=== PATIENT | female | born 1995 | race Caucasian/White ===

== ENCOUNTER 2017-10-09 08:03 | Outpatient (CLI) | payer OTHER ==
[2017-10-09 08:51] LABS: Glucose,Whole Blood 95 mg/dL (75-99)
[2017-10-09 08:56] VITALS: BP 117/65; PULSE 80; RESP 16; TEMP 97.4
--- NOTE | 2017-10-10 07:40 | P.MSEPDOC ---
Presenting Problems - Arrival Data Date of Arrival on Unit: 10/09/17 Time of Arrival on Unit: 08:14 Mode of Transport: Wheelchair - Complaint OB-Reason for Admission/Chief Complaint: Syncope/Fainting Spell, Other Comment: pt arrived c/o upper abd discomfort and c/o seeing dots and black spots. pt has been seeing dr raygoza for this and he is aware of her having this issue and has done testing prior and she has seen a cardilogist Medical History - Information : 3 Para: 1 Term: 1 : 0 Abortions: Spontaneous or Elective: 1 Number of Living Children: 1 - Gestational Age Gestational Age by BETTYE (wks/days): 33 Weeks and 5 Days - History Complications: Prior Review of Systems - Review of Systems Constitutional: No problems Breast: No problems ENT: No problems Cardiovascular: No problems Respiratory: No problems Gastrointestinal: No problems Genitourinary: No problems Musculoskeletal: No problems Neurological: Fainting, Dizziness Skin: No problems Comment: pt states a history of blacking out and seeing stars Vital Signs - Temperature Temperature: 97.4 F Temperature Source: Oral - Pulse Right Brachial Pulse Rate: 80 Pulse Assessment Method: Automatic Cuff - Respirations Respiratory Rate: 16 Oxygen Delivery Method: Room Air O2 Sat by Pulse Oximetry: 99 - Blood Pressure Right Arm Blood Pressure: 117/65 Blood Pressure Mean: 82 Blood Pressure Source: Automatic Cuff Medical Screen Scoring (Pre) - Maternal Vital Signs Maternal Temperature: N/A Maternal Blood Pressure: N/A Signs of Preeclampsia: Visual Disturbance = 1 Maternal Respirations: N/A - Maternal Trauma Maternal Trauma: N/A - Assessment Baseline FHR: 130 Heart Rate - NICHD Category: Category I (Normal) = 0 NST: Reactive Position: N/A Station: N/A - Total Score Total Score (Pre): 1 Medical Screen Scoring (Post) - Cervical Exam Dilation: 0 cm = 0 Membranes: Intact - Uterine Contractions Frequency: N/A Duration: N/A Intensity: N/A - Maternal Vital Signs Maternal Temperature: N/A Maternal Blood Pressure: N/A Signs of Preeclampsia: N/A Maternal Respirations: N/A - Pain Assessment Pain Location and Character: Abdomen Pain Scale Used: Numeric (1 - 10) Pain Intensity: 6 Pain Management Goal: 2 Pain Description: Dull Pain Radiation Location: n/a Pain Frequency: Occasional Pain Duration: 40 Pain Duration Units: Minutes Pain Behavior: Vocalization Pain Aggravating Factors: Position Non-Pharmacological Interventions: Relaxation Technique - Maternal Trauma Maternal Trauma: N/A - Assessment Heart Rate: 130 Heart Rate - NICHD Category: Category I (Normal) = 0 NST: Reactive Position: N/A Station: N/A - Total Score Total Score (Post): 0 Physician Notification (Post) - Physician Notified Physician Notified Date: 10/09/17 Physician Notified Time: 09:40 Spoke With: dr rick Trevino Order Received: Yes - Notification Comment Comment: may discharge to home with instructions Disposition - Disposition Discharge Date: 10/09/17 Discharge Time: 10:00 I agree with the RN Medical Screening Exam: Yes Risk & Benefit of care provided described in d/c instruction: Yes Diagnosis: DIZZINESS AND GIDDINESS
== END 2017-10-09 10:00 | disposition home or self-care (01) ==
LOC: FBPOP 08:03
PROVIDERS: ATTEND Obstetrics & Gynecology
DX: O99.89 Other specified diseases and conditions complicating pregnancy, childbirth and the puerperium (principal); R42 Dizziness and giddiness; Z3A.33 33 weeks gestation of pregnancy
CPT/HCPCS: 59025; G0463; 99213

== ENCOUNTER → 2017-11-01 | Outpatient (CLI) | payer OTHER ==
--- NOTE | 2017-11-01 15:45 | US ---
EXAMINATION TYPE: US OB >= 14 wk fetus DATE OF EXAM: 11/01/2017 COMPARISON: NONE HISTORY: supervision of normal Z34 TECHNIQUE: Transabdominal (TA) EXAM MEASUREMENTS: GESTATIONAL AGE / DATING Physician Established: (37 weeks/0 days) EDC: 11/22/17 Dates by LMP: unknown Dates by First Scan: not available Dates by Current Scan for: (36 weeks/ 3 days) EDC: 11/26/17 SURVEY IUP: Single PLACENTA: Anterior PREVIA: No previa ASHANTI: 11.4 cm CERVICAL LENGTH (transabdominal: norm > 3.0cm): 3.8 cm BIOMETRY PRESENTATION: Vertex LIE: Longitudinal BPD: 9.1 cm 37 weeks / 0 days HC: 32.7 cm 37 weeks / 1 days AC: 31.5 cm 35 weeks / 3 days FL: 7.1 cm 36 weeks / 2 days ESTIMATED WEIGHT IN GRAMS: 2815 grams ESTIMATED WEIGHT IN LBS/OZ: 6 lbs. 3 oz. WEIGHT PERCENTAGE BASED ON ESTABLISHED DATE: 29 % HC/AC: 1.0 FL/AC: 22.5 HEART RATE: 156 bpm RHYTHM: Normal IMPRESSION: Single viable intrauterine corresponding to ultrasound age 36 weeks 3 days with estimated d ate of delivery 11/26/2017. Limited survey.
== END | disposition home or self-care (01) ==
LOC: RADUSWWP 14:17
PROVIDERS: ATTEND Obstetrics & Gynecology
DX: Z34.80 Encounter for supervision of other normal pregnancy, unspecified trimester (principal); Z3A.36 36 weeks gestation of pregnancy
CPT/HCPCS: 76805

== ENCOUNTER 2018-03-26 03:34 | Emergency (ER) | payer OTHER ==
[2018-03-26 03:44] VITALS: BP 118/84; PULSE 83; RESP 16; TEMP 98
--- NOTE | 2018-03-26 04:27 | ED ---
General Adult HPI - General Chief complaint: Allergic Reaction Stated complaint: ALLERGIC REACTION Source: patient Mode of arrival: ambulatory Limitations: no limitations - History of Present Illness Initial comments: Dictation was produced using [employer] dictation software. please excuse any grammatical, word or spelling errors. Chief Complaint: 22-year-old -Ugandan female seemed. Medical history presents with rash History of Present Illness:. Patient is a 22-year-old female with chief complaint of rash. Patient states she's been having this rash for the last 2 days. Patient has been exposed to couple no medications. She states she received some Toradol she's been taking Motrin. She also started new job 4 days ago. She states she has this intermittent episodic rash to her dorsal hands and face. Patient was called in a prescription for steroids however she continues at this intermittent rash. Patient has been wearing his gloves. The ROS documented in this emergency department record has been reviewed and confirmed by me. Those systems with pertinent positive or negative responses have been documented in the HPI. All other systems are other negative and/or noncontributory. - Related Data Home Medications Medication Instructions Recorded Confirmed Docusate [Colace] 100 mg PO DAILY 10/09/17 10/09/17 Pnv No.95/Ferrous Fum/Folic AC 1 each PO 10/09/17 [ Multivitamin Tablet] Previous Rx's Medication Instructions Recorded hydrOXYzine HCL [Atarax] 25 mg PO TID PRN #20 tab 03/26/18 Allergies Allergy/AdvReac Type Severity Reaction Status Date / Time No Known Allergies Allergy Verified 10/09/17 08:22 Review of Systems ROS Statement: Those systems with pertinent positive or pertinent negative responses have been documented in the HPI. ROS Other: All systems not noted in ROS Statement are negative. Past Medical History Past Medical History: No Reported History History of Any Multi-Drug Resistant Organisms: None Reported Past Surgical History: Section Past Psychological History: Anxiety Smoking Status: Former smoker General Exam - General Exam Comments Initial Comments: PHYSICAL EXAM: General Impression: Alert and oriented x3, not in acute distress HEENT: Normocephalic atraumatic, extra-ocular movements intact, pupils equal and reactive to light bilaterally, mucous membranes moist. Cardiovascular: Heart regular rate and rhythm, S1&S2 audible, no murmurs, rubs or gallops Chest: Lungs clear to auscultation bilaterally, no rhonchi, no wheeze, no rales Abdomen: Bowel sounds present, abdomen soft, non-tender, non-distended, no organomegaly Musculoskeletal: Pulses present and equal in all extremities, no peripheral edema Motor: Power 5/5 bilaterally, no focal deficits noted Neurological: CN II-XII grossly intact, no focal motor or sensory deficits noted Skin: Erythematous macular rash to the dorsum of both hands with lesions to the mastoid areas and anterior face. Spares the palms. No rash to the abdomen chest or back. Psych: Normal affect and mood Limitations: no limitations Course Vital Signs 03/26/18 03:38 Temperature 98.0 F Pulse Rate 83 Respiratory 16 Rate Blood Pressure 118/84 O2 Sat by Pulse 100 Oximetry Medical Decision Making - Medical Decision Making ED course: 22-year-old female click or presentation consistent with contact dermatitis. Vital signs upon arrival are within acceptable limits. No clinical suspicion of anaphylaxis or life-threatening ALLERGIC reaction at this time. Patient prescription for Atarax. She is told to continue taking prednisone. Patient be discharged with instructions for her care physician upon discharge. Disposition Clinical Impression: Allergic reaction Disposition: HOME SELF-CARE Condition: Good Instructions: Contact Dermatitis (ED) Prescriptions: hydrOXYzine HCL [Atarax] 25 mg PO TID PRN #20 tab PRN Reason: Itching Is patient prescribed a controlled substance at d/c from ED?: No Referrals: Janelle Lafleur MD [Primary Care Provider] - 1-2 days Time of Disposition: 04:26
== END 2018-03-26 04:37 | disposition home or self-care (01) ==
LOC: EC 03:34
DX: T78.40XA Allergy, unspecified, initial encounter (principal); Z87.891 Personal history of nicotine dependence
CPT/HCPCS: 99282

== ENCOUNTER 2018-05-26 16:33 | Emergency (ER) | payer OTHER ==
[2018-05-26 16:44] VITALS: TEMP 97.9
[2018-05-26] MEDS ORDERED: ACETAMINOPHEN TAB 500 MG TAB PO STA (16:58)
--- NOTE | 2018-05-26 17:00 | ED ---
General Adult HPI - General Chief complaint: Abdominal Pain Stated complaint: early -pain on right side Source: patient Mode of arrival: ambulatory Limitations: no limitations - History of Present Illness Initial comments: Dictation was produced using [employer] dictation software. please excuse any grammatical, word or spelling errors. Chief Complaint: 22-year-old -Algerian female presents with right-sided flank pain. History of Present Illness: She is a 22-year-old female. She just found out she was approximately one week ago. She believes she is approximately 10 weeks . She states she has sharp pain to her right side since last night. Patient has a history of ectopic . She had a similar symptoms when she was diagnosed with ectopic several years ago. Patient states that she had her left fallopian tube removed. Patient has been having difficulty finding an [employer]UM[employer] PROJECT COORDINATOR secondary to her high risk status given history of ectopic . Patient denies any nausea vomiting. No vaginal bleeding. The ROS documented in this emergency department record has been reviewed and confirmed by me. Those systems with pertinent positive or negative responses have been documented in the HPI. All other systems are other negative and/or noncontributory. - Related Data Home Medications Medication Instructions Recorded Confirmed Ibuprofen [Motrin Ib] 800 mg PO Q8H PRN 05/26/18 05/26/18 Allergies Allergy/AdvReac Type Severity Reaction Status Date / Time No Known Allergies Allergy Verified 05/26/18 17:11 Review of Systems ROS Statement: Those systems with pertinent positive or pertinent negative responses have been documented in the HPI. ROS Other: All systems not noted in ROS Statement are negative. Past Medical History Past Medical History: No Reported History History of Any Multi-Drug Resistant Organisms: None Reported Past Surgical History: Section Past Psychological History: Anxiety Smoking Status: Former smoker General Exam - General Exam Comments Initial Comments: PHYSICAL EXAM: General Impression: Alert and oriented x3, acute distress secondary to pain HEENT: Normocephalic atraumatic, extra-ocular movements intact, pupils equal and reactive to light bilaterally, mucous membranes moist. Cardiovascular: Heart regular rate and rhythm, S1&S2 audible, no murmurs, rubs or gallops Chest: Lungs clear to auscultation bilaterally, no rhonchi, no wheeze, no rales Abdomen: Bowel sounds present, abdomen soft, non-tender, non-distended, no organomegaly Musculoskeletal: Pulses present and equal in all extremities, no peripheral edema Motor: Power 5/5 bilaterally, no focal deficits noted Neurological: CN II-XII grossly intact, no focal motor or sensory deficits noted Skin: Intact with no visualized rashes Psych: Normal affect and mood Limitations: no limitations Course Vital Signs 05/26/18 05/26/18 16:42 19:21 Temperature 97.9 F Pulse Rate 80 83 Respiratory 16 18 Rate Blood Pressure 96/59 106/72 O2 Sat by Pulse 100 100 Oximetry Medical Decision Making - Medical Decision Making ED course: 29-year-old female presents with right-sided flank pain. She is allegedly 10 weeks . Signs upon arrival shows blood pressure 96/59, worse vital signs within normal limits.Return evaluation obtained. CBC, metabolic panel is unremarkable. No leukocytosis. HCG Quant is 17,000. Ultrasound shows no acute processes. Didn't was made to visualize the appendix it did appear visualized and there were no findings to suggest appendicitis. Obstetric ultrasound showed yolk sac and gestational sac measuring approximately 5 weeks 1 day gestation. Patient is given Tylenol. She is reevaluated with improvement of symptoms. Patient offered pelvic exam however she refused. Patient advised to follow-up with HUM[employer] PROJECT COORDINATOR upon discharge. States that she will get vitamins and Tylenol [id number]. Patient understandable agreeable to plan. - Lab Data Result diagrams: 05/26/18 17:16 05/26/18 17:16 Lab Results 05/26/18 05/26/18 05/26/18 Range/Units 17:16 17:16 17:16 WBC 8.7 (3.8-10.6) k/uL RBC 4.44 (3.80-5.40) m/uL Hgb 13.1 (11.4-16.0) gm/dL Hct 40.1 (34.0-46.0) % MCV 90.3 (80.0-100.0) fL MCH 29.5 (25.0-35.0) pg MCHC 32.7 (31.0-37.0) g/dL RDW 13.6 (11.5-15.5) % Plt Count 276 (150-450) k/uL Neutrophils % 59 % Lymphocytes % 30 % Monocytes % 7 % Eosinophils % 2 % Basophils % 1 % Neutrophils # 5.1 (1.3-7.7) k/uL Lymphocytes # 2.6 (1.0-4.8) k/uL Monocytes # 0.6 (0-1.0) k/uL Eosinophils # 0.2 (0-0.7) k/uL Basophils # 0.1 (0-0.2) k/uL Sodium 140 (137-145) mmol/L Potassium 4.2 (3.5-5.1) mmol/L Chloride 107 (98-107) mmol/L Carbon Dioxide 26 (22-30) mmol/L Anion Gap 7 mmol/L BUN 14 (7-17) mg/dL Creatinine 0.74 (0.52-1.04) mg/dL Est GFR (CKD-EPI)AfAm >90 (>60 ml/min/1.73 sqM) Est GFR (CKD-EPI)NonAf >90 (>60 ml/min/1.73 sqM) Glucose 71 L (74-99) mg/dL Calcium 9.5 (8.4-10.2) mg/dL HCG, Quant 44096.5 mIU/mL Blood Type AB Positive Blood Type Recheck No Antibody Screen NEGATIVE Spec Expiration Date 05/29/2018 - 2316 Disposition Clinical Impression: Pelvic pain Disposition: HOME SELF-CARE Condition: Good Instructions: Pelvic Pain in Women (ED) Is patient prescribed a controlled substance at d/c from ED?: No Referrals: Janelle Lafleur MD [Primary Care Provider] - 1-2 days Antonia Yancey DO [Doctor of Osteopathic Medicine] - 1-2 days Time of Disposition: 20:30
[2018-05-26 17:41] LABS: Basophils # (A) 0.1 k/uL (0-0.2); Basophils % (A) 1 %; Eosinophils # (A) 0.2 k/uL (0-0.7); Eosinophils % (A) 2 %; HCT 40.1 % (34.0-46.0); HGB 13.1 gm/dL (11.4-16.0); Lymphocytes # (A) 2.6 k/uL (1.0-4.8); Lymphocytes % (A) 30 %; MCH 29.5 pg (25.0-35.0); MCHC 32.7 g/dL (31.0-37.0); MCV 90.3 fL (80.0-100.0); Mean Platelet Volume 6.8; Monocytes # (A) 0.6 k/uL (0-1.0); Monocytes % (A) 7 %; Neutrophils # (A) 5.1 k/uL (1.3-7.7); Neutrophils % (A) 59 %; Platelet Count 276 k/uL (150-450); RBC 4.44 m/uL (3.80-5.40); RDW 13.6 % (11.5-15.5); WBC 8.7 k/uL (3.8-10.6)
[2018-05-26 17:57] LABS: Anion Gap 7 mmol/L; Blood Urea Nitrogen 14 mg/dL (7-17); Calcium 9.5 mg/dL (8.4-10.2); Carbon Dioxide 26 mmol/L (22-30); Chloride 107 mmol/L (98-107); Glucose 71 mg/dL (74-99); Potassium 4.2 mmol/L (3.5-5.1); Sodium 140 mmol/L (137-145)
[2018-05-26 18:44] LABS: HCG,Quantitative Serum 17315.5 mIU/mL
--- NOTE | 2018-05-26 19:01 | US ---
EXAMINATION TYPE: US abdomen limited DATE OF EXAM: 05/26/2018 COMPARISON: NONE CLINICAL HISTORY: Pain EXAM MEASUREMENTS: Liver Length: 14.5 cm Gallbladder Wall: 0.2 cm CBD: 0.12 cm Right Kidney: 11.0 x 4.2 x 4.8 cm Pancreas: wnl Liver: wnl Gallbladder: wnl Evidence for sonographic Bryan's sign: No CBD: wnl Right Kidney: wnl IMPRESSION: No acute process.
--- NOTE | 2018-05-26 19:14 | US ---
EXAMINATION TYPE: Transabdominal and transvaginal DATE OF EXAM: 05/26/2018 COMPARISON: None CLINICAL HISTORY: Pain, history of ectopic, left tube removed. EXAM MEASUREMENTS: UTERUS: 7.64 x 5.49 x 6.21 cm, with single intrauterine gestational sac within the fundus with mean g estational sac diameter 1.05 cm; corresponding with 5 weeks 1 day gestation sonographically. Spherica l yolk sac visualized (normal less than 6mm), measuring 0.14 cm. No subchorionic hemorrhage. RIGHT ADNEXA: Unremarkable. LEFT ADNEXA: Unremarkable. CUL-DE-SAC: Presence of free fluid: None. GESTATION / SURVEY IMPRESSION: INTRAUTERINE GESTATIONAL SAC WITH YOLK SAC VISUALIZED. SONOGRAPHIC GESTATIONAL AGE 5 WEEKS 1 DAY GESTATION.
[2018-05-26 19:21] VITALS: BP 106/72; PULSE 83; RESP 18
--- NOTE | 2018-05-26 20:26 | US ---
EXAMINATION TYPE: US abdomen APPY DATE OF EXAM: 05/26/2018 COMPARISON: NONE CLINICAL HISTORY: Pain. RLQ Pain APPENDIX AP Diameter (normal < 6mm): 2 mm Measured outer wall to outer wall. Is the appendix seen in its entirety from the proximal cecum to distal end: No Is the appendix compressible: Yes Does the appendix wall appear hypervascular: No Is an appendicolith present: No Is there inflammatory changes or free fluid present: No IMPRESSION: Negative examination.
== END 2018-05-26 20:38 | disposition home or self-care (01) ==
LOC: EC 16:33
DX: O99.89 Other specified diseases and conditions complicating pregnancy, childbirth and the puerperium (principal); R10.2 Pelvic and perineal pain; Z3A.01 Less than 8 weeks gestation of pregnancy; Z87.891 Personal history of nicotine dependence
CPT/HCPCS: 36415; 76705; 76801; 76817; 80048; 84702; 85025; 86850; 86900; 86901; 99284

== ENCOUNTER → 2018-07-08 | Outpatient (CLI) | payer OTHER ==
--- NOTE | 2018-07-08 16:20 | US ---
EXAMINATION TYPE: Transabdominal DATE OF EXAM: 09/21/17 COMPARISON: NONE CLINICAL HISTORY: Z36 Confirm dates. early OB EXAM PERFORMED: OBTA EXAM MEASUREMENTS: GESTATIONAL AGE / DATING Physician Established: Not yet established Dates by LMP: (11 weeks/6 days) EDC: 01/21/2019 Dates by First Scan: No previous this is first scan Dates by Current Scan for: (11 weeks/4 days) EDC: 01/23/2019 MATERNAL ANATOMY Uterus: 11.8 x 8.3 x 10.1cm Right Ovary: 2.7 x 2.0 x 1.9cm Left Ovary: 2.8 x 1.9 x 1.9cm Post CDS / Adnexa: wnl Presence of free fluid: no Presence of corpus luteal cyst: 2.1cm on the right ovary Presence of subchorionic bleed: no GESTATION / SURVEY CRL: 4.8cm (11 weeks/4 days) MSD: wnl Yolk Sac (normal less than 6mm): 0.2 Heart Rate: 169 bpm Rhythm: Normal IUP: Viable IUP Date of LMP: 04/16/2018 IMPRESSION: 1. Single intrauterine gestation estimated at 11 weeks 4 days gestation based on the crown-rump lengt h. Cardiac activity measures 169 bpm.
[2018-07-08 16:40] LABS: HCT 38.9 % (34.0-46.0); HGB 12.4 gm/dL (11.4-16.0); MCH 29.4 pg (25.0-35.0); MCHC 31.9 g/dL (31.0-37.0); MCV 92.4 fL (80.0-100.0); Mean Platelet Volume 7.7; Platelet Count 244 k/uL (150-450); RBC 4.22 m/uL (3.80-5.40); RDW 13.5 % (11.5-15.5); WBC 10.2 k/uL (3.8-10.6)
[2018-07-08 16:59] LABS: Glucose 71 mg/dL (74-99)
== END | disposition home or self-care (01) ==
LOC: RADUSWWP 15:30
PROVIDERS: ATTEND Obstetrics & Gynecology
DX: Z34.81 Encounter for supervision of other normal pregnancy, first trimester (principal)
CPT/HCPCS: 36415; 76801; 82565; 82947; 83021; 85027; 86762; 86780; 86850; 86900; 86901; 87340

== ENCOUNTER 2018-11-06 08:19 | Outpatient (CLI) | payer OTHER ==
[2018-11-06] MEDS ORDERED: LACTATED RINGERS 1,000 ML IV SCH (09:15)
[2018-11-06] MEDS ORDERED: BETAMET ACET-BETAMETH SOD PHOS 6 MG/ML VIAL IM SCH (09:15)
[2018-11-06 09:21] LABS: Basophils # (A) 0.1 k/uL (0-0.2); Basophils % (A) 1 %; Eosinophils # (A) 0.1 k/uL (0-0.7); Eosinophils % (A) 1 %; HCT 35.6 % (34.0-46.0); Lymphocytes % (A) 22 %; MCHC 33.8 g/dL (31.0-37.0); MCV 88.6 fL (80.0-100.0); Mean Platelet Volume 8.1; Monocytes # (A) 0.7 k/uL (0-1.0); Monocytes % (A) 8 %; Neutrophils # (A) 6.1 k/uL (1.3-7.7); Neutrophils % (A) 67 %; Platelet Count 196 k/uL (150-450); RBC 4.02 m/uL (3.80-5.40); RDW 13.6 % (11.5-15.5); WBC 9.1 k/uL (3.8-10.6)
--- NOTE | 2018-11-06 10:10 | US ---
EXAMINATION TYPE: US OB >= 14 wk fetus DATE OF EXAM: 11/06/2018 COMPARISON: 11/01/2017. CLINICAL HISTORY: vaginal bleeding Pain at scar. Bleeding. TECHNIQUE: Transabdominal (TA) GESTATIONAL AGE / DATING Physician Established: (28 weeks/6 days) EDC: 01/23/2019 Dates by Current Scan: (28 weeks/4 days) EDC: 01/25/2019 SURVEY IUP: Single PLACENTA: Anterior PREVIA: No Previa ASHANTI: 11.8 cm Normal CERVICAL LENGTH (transabdominal: norm > 3.0cm): 4.0 cm BIOMETRY PRESENTATION: Transverse lie with head to maternal right BPD: 7.2 cm 28 weeks / 5 days HC: 27.2 cm 29 weeks / 5 days AC: 24.6 cm 28 weeks / 6 days FL: 5.4 cm 28 weeks / 4 days ESTIMATED WEIGHT IN GRAMS: 1289 grams ESTIMATED WEIGHT IN LBS/OZ: 2 lbs. 13 oz. WEIGHT PERCENTAGE BASED ON ESTABLISHED DATES: 35.4% HC/AC: 1.1 Normal FL/AC: 22.0 Normal HEART RATE: 140 bpm RHYTHM: Normal Single live IUP measuring 28 weeks 4 days. In [place] at area of scar, circular isoechoic to u terus lesion visualized, nonvascular= 5.6 x 5.0 x 5.7 cm. Area of concern protrudes into GS cavity. Fibroid vs scar hemorrhage? IMPRESSION: SANDOVAL FETUS PRESENT IN A TRANSVERSE LIE WITH A GESTATIONAL AGE OF 28 DAYS 4 DAYS +/- 2 WEEKS. EST IMATED DATE OF CONFINEMENT BASED ON THIS EXAMINATION IS 01/25/2019.
--- NOTE | 2018-11-06 10:38 | P.HPOB ---
History of Present Illness H&P Date: 11/06/18 Chief Complaint: vaginal bleeding and pain at 28 weeks 23 year old presents at 28 weeks 6 days complaining of lower pelvic pain and vaginal bleeding since she woke up this morning. The pain is coming about every 10 minutes but she is also tender to the touch. heart tones 140's moderate variability, + accels, no decels, category 1 tracing. Cervix is FT, thick, -3. US showed no previa, ASHANTI=11.8cm, EFW = 1289 grams, transverse spine up, head to maternal right. There is a 5.6 x 5 x 5.7cm circular echogenic area near her old incision and area of pain. We are unsure what this is-fibroid or hemorrhage. I did give her a dose of BMZ and started IV fluids. I consulted with VICTOR HUGO Marroquin at [facility], who said I could transfer her there as long as she remained stable for the next 1-2 hours. Review of Systems All systems: negative Constitutional: Denies chills, Denies fever Eyes: denies blurred vision, denies pain Ears, nose, mouth and throat: Denies headache, Denies sore throat Cardiovascular: Denies chest pain, Denies shortness of breath Respiratory: Denies cough Gastrointestinal: Reports abdominal pain, Denies diarrhea, Denies nausea, Denies vomiting Genitourinary: Denies dysuria, Denies hematuria Musculoskeletal: Denies myalgias Integumentary: Denies pruritus, Denies rash Neurological: Denies numbness, Denies weakness Psychiatric: Denies anxiety, Denies depression Endocrine: Denies fatigue, Denies weight change Past Medical History Past Medical History: No Reported History Additional Past Medical History / Comment(s): OB history: she had a with first , the second was ectopic and they removed the left tube, The third was another and this is her fourth . She has had care with Dr Parker since first trimester. History of Any Multi-Drug Resistant Organisms: None Reported Past Surgical History: Section Smoking Status: Current every day smoker Past Alcohol Use History: None Reported Past Drug Use History: None Reported Medications and Allergies Home Medications Medication Instructions Recorded Confirmed Type Phenylephrine HCl [Sudafed PE] 10 mg PO Q6HR 11/06/18 11/06/18 History Allergies Allergy/AdvReac Type Severity Reaction Status Date / Time No Known Allergies Allergy Verified 11/06/18 08:27 Exam Osteopathic Statement: *. No significant issues noted on an osteopathic structural exam other than those noted in the History and Physical/Consult. Vital Signs Temp Pulse Resp BP Pulse Ox 11/06/18 08:44 97.1 F L 71 16 118/63 98 Intake and Output 11/05/18 11/06/18 11/06/18 22:59 06:59 14:59 Other: Weight 92.986 kg HEart: RRR Lungs: CTAB ABdomen: soft, nontender Extremeties: neg klaus's Results Result Diagrams: 11/06/18 08:50 Assessment and Plan (1) Antepartum hemorrhage in third trimester Current Visit: Yes Status: Acute Code(s): O46.93 - ANTEPARTUM HEMORRHAGE, UNSPECIFIED, THIRD TRIMESTER SNOMED Code(s): 224858669 Plan: 1. As long as she remains stable, I will transfer her to [facility] where they could take care of a .
[2018-11-06 11:21] VITALS: BP 127/82; PULSE 72; RESP 16; TEMP 97.7
== END 2018-11-06 11:45 ==
LOC: FBPOP 08:19
PROVIDERS: ATTEND Obstetrics & Gynecology
DX: O46.93 Antepartum hemorrhage, unspecified, third trimester (principal); O32.2XX0 Maternal care for transverse and oblique lie, not applicable or unspecified; Z3A.28 28 weeks gestation of pregnancy
CPT/HCPCS: 96360; 96361; 96372; 86900; 86901; 85025; 86850; 76805; G0463; J0702; 99215

== ENCOUNTER 2018-11-23 16:06 | Outpatient (CLI) | payer OTHER ==
[2018-11-23 17:02] VITALS: BP 111/63; PULSE 86; RESP 18; TEMP 98.8
--- NOTE | 2019-01-02 17:37 | P.MSEPDOC ---
Presenting Problems - Arrival Data Date of Arrival on Unit: 11/23/18 Time of Arrival on Unit: 16:10 Mode of Transport: Ambulatory - Complaint OB-Reason for Admission/Chief Complaint: Vaginal Bleeding Comment: pt states bleeding at home dark brown that turned to bright red last night. states she strains to go to with constipation. hx of blood clot at cerv[facility] on 11/[facility] x 5 days. pelvic rest since that time. Medical History - Information : 4 Para: 2 Term: 2 : 0 Abortions: Spontaneous or Elective: 1 Number of Living Children: 2 - Gestational Age Gestational Age by BETTYE (wks/days): 31 Weeks and 2 Days - History Complications: Prior Comment: c/s x 2, ectopic preg x 1. Review of Systems - Review of Systems Constitutional: No problems Breast: No problems ENT: No problems Cardiovascular: No problems Respiratory: No problems Gastrointestinal: No problems Genitourinary: No problems Musculoskeletal: No problems Neurological: No problems Skin: No problems Comment: no bleeding noted states she was at work at [email or web address] today and the bleeding stopped when she came home. Vital Signs - Temperature Temperature: 98.8 F Temperature Source: Oral - Pulse Right Brachial Pulse Rate: 86 Pulse Assessment Method: Automatic Cuff - Respirations Respiratory Rate: 18 Oxygen Delivery Method: Room Air O2 Sat by Pulse Oximetry: 96 - Blood Pressure Right Arm Blood Pressure: 111/63 Blood Pressure Mean: 79 Blood Pressure Source: Automatic Cuff Medical Screen Scoring (Pre) - Cervical Exam Dilation: Exam Deferred Effacement: Exam Deferred Membranes: Intact - Uterine Contractions Frequency: N/A Duration: N/A Intensity: N/A - Maternal Vital Signs Maternal Temperature: N/A Maternal Blood Pressure: N/A Signs of Preeclampsia: N/A Maternal Respirations: N/A - Maternal Trauma Maternal Trauma: N/A - Assessment - Baby A Baseline FHR: 140 Heart Rate - NICHD Category: Category I (Normal) = 0 NST: Reactive Position: N/A Station: N/A - Total Score - Baby A Total Score - Baby A: 0 - Level of Risk - Baby A Level of Risk - Baby A: Low (0-5) - Pain Assessment Pain Location and Character: Groin Pain Scale Used: Numeric (1 - 10) Pain Intensity: 0 Pain Frequency: Occasional Pain Behavior: None Exhibited, Vocalization Pain Aggravating Factors: Activity Physician Notification (Pre) - Physician Notified Physician Notified Date: 11/23/18 Physician Notified Time: 16:40 Physician/Practitioner Notifed:: rick Spoke With: rick New Order Received: Yes - Notification Comment Comment: disch home. make fruiday appt with dr agrawal. no work till after wednesday. pelvic rest. Disposition - Disposition OB Disposition: Discharge to home Discharge Date: 11/23/18 Discharge Time: 17:02 I agree with the RN Medical Screening Exam: Yes Risk & Benefit of care provided described in d/c instruction: Yes Diagnosis: RELATED CONDITIONS, UNSPECIFIED, THIRD TRIMESTER (bleeding)
== END 2018-11-23 17:19 | disposition home or self-care (01) ==
LOC: FBPOP 16:06
PROVIDERS: ATTEND Obstetrics & Gynecology
DX: O46.93 Antepartum hemorrhage, unspecified, third trimester (principal); Z3A.31 31 weeks gestation of pregnancy
CPT/HCPCS: 59025; G0463; 99213

== ENCOUNTER 2019-01-14 09:35 | Inpatient (IN) | payer OTHER ==
[2019-01-14] MEDS ORDERED: OXYTOCIN 10 UNIT/ML 1 ML VIAL IM ONE (09:47)
[2019-01-14] MEDS ORDERED: diphenhydrAMINE 25 MG CAP PO PRN (10:15)
[2019-01-14] MEDS ORDERED: ZOLPIDEM 5 MG TAB PO PRN (10:15)
[2019-01-14] MEDS ORDERED: HYDROCORTISONE 2.5% RECTAL CREAM 30 GM TUBE RECTAL PRN (10:15)
[2019-01-14] MEDS ORDERED: MEASLES-MUMPS-RUBELLA VACC/PF 12,500 UNIT/0.5 ML VIAL SQ ONE (10:15)
[2019-01-14] MEDS ORDERED: SIMETHICONE 80 MG CHEWABLE PO PRN (10:15)
[2019-01-14] MEDS ORDERED: WITCH HAZEL 1 EACH MED..PAD TOPICAL PRN (10:15)
[2019-01-14] MEDS ORDERED: BENZOCAINE/MENTHOL SPRAY 1 GM/SPRAY AEROSOL TOPICAL PRN (10:15)
[2019-01-14] MEDS ORDERED: diphenhydrAMINE 50 MG/ML 1 ML VIAL IVP PRN ×2 (10:15)
[2019-01-14] MEDS ORDERED: LANOLIN CREAM 5 GM TUBE TOPICAL PRN (10:15)
[2019-01-14] MEDS ORDERED: diphenhydrAMINE 50 MG CAP PO PRN (10:15)
[2019-01-14] MEDS ORDERED: OXYTOCIN 20 UNITS/1000 ML NS 1,000 ML IV SCH (10:15)
[2019-01-14] MEDS: SENNOSIDES-DOCUSATE SODIUM 1 EACH TAB PO SCH (10:23)
[2019-01-14] MEDS: IBUPROFEN 600 MG TAB PO PRN ×2 (10:23→21:03)
--- NOTE | 2019-01-14 10:31 | P.HPOB ---
History of Present Illness H&P Date: 01/14/19 Chief Complaint: Intrauterine at term: C-sections 2: Active labor Patient is a 23 with history of ectopic as well who arrives to triage complete. She was brought in following dc all evening and having close very painful contractions over the last several hours. She was apparently seen at [facility] last night in the middle the night proxy 2 AM was told she was not in labor and was discharged to home. She did not return and was brought here. On presentation and evaluation she was clearly in active labor she was completely dilated and essentially beginning to crown at +2+3 station she did have 2 prior sections and a was planned, however has it would take longer to open the room and get everything ready and prepared and try and get her under anesthetic versus having her push it was safer to try and do this and get her delivered than it would've been to do a section. Did try and discussed this clearly prior to the delivery but she was in a lot of pain and I did explain that we would if we had to open the room and trying to but that I thought it was very unlikely would be able to make it back in time from that standpoint. Patient was seeing me until approximately December 15 when she transferred care to [facility]. Pertinent blood type is AB+ Rh antibody was negative, rubella, hepatitis B surface antigen and RPR were all negative hemoglobin electrophoresis was also negative. She did see maternal medicine initially in the but since I'm not seen her since approximately 34 weeks I don't have any other information on whether not she is continue to follow-up follow through with high risk recommendations. On physical exam vital signs are stable and afebrile. Heart regular, lungs clear, extremities without pain. Abdomen is gravid. She is dc every 2 minutes. heart tones when present on the monitor were between 07/21/1960. There is no timeframe where there is a good baseline recorded due to her thrashing around and how low the baby was in the pelvis. Assessment intrauterine at term: Active labor: 2 prior C-sections attempt to in this situation Plan attempted we will move towards getting the section ready Past Medical History Past Medical History: No Reported History Additional Past Medical History / Comment(s): OB history: she had a with first , the second was ectopic and they removed the left tube, The third was another and this is her fourth . She has had care with Dr Parker since first trimester. History of Any Multi-Drug Resistant Organisms: None Reported Past Surgical History: Section Smoking Status: Current every day smoker Medications and Allergies Home Medications Medication Instructions Recorded Confirmed Type Pnv,Calcium 72/Iron/Folic Acid 1 each PO DAILY 11/23/18 11/23/18 History [ Plus Tablet] Allergies Allergy/AdvReac Type Severity Reaction Status Date / Time No Known Allergies Allergy Verified 01/14/19 10:18 Exam Osteopathic Statement: *. No significant issues noted on an osteopathic structu ral exam other than those noted in the History and Physical/Consult. Intake and Output 01/13/19 01/14/19 01/14/19 22:59 06:59 14:59 Other: Weight 92.986 kg
--- NOTE | 2019-01-14 10:34 | P.PROBDLV ---
Vaginal Delivery Note - . Vaginal Delivery Note: Patient progressed to complete and pushing with spontaneous vaginal delivery of a viable female over an intact perineum. Falling deliver the head shoulders were easily delivered and mouth nares were bulb suctioned. There was an immediate cry from the baby. The umbilical cord was allowed to pulsate for approximately 30-40 seconds prior to clamping and cutting. Nursery personnel and forestry laborer were present at delivery. Once baby was delivered and passed off to nursery personnel. Placenta was then delivered intact and Pitocin was given IM as there was no time to place an IV. scores 8 and 9 at one and 5 minutes respectively and weight was 6 lbs. 3 oz. There is a small right labial laceration, however it was not bleeding and she requested that it not be repaired. Mother and baby are currently stable following delivery. Baby was taken to special care nursery out of abundance of caution
[2019-01-14 13:05] LABS: Amphetamine Screen,Urine Not Detected (NotDetected); Barbiturate Screen,Urine Not Detected (NotDetected); Benzodiazepines Screen,Urine Not Detected (NotDetected); Cocaine Screen,Urine Not Detected (NotDetected); Methadone Screen, Urine Not Detected (NotDetected); Opiate Screen,Urine Not Detected (NotDetected); Oxycodone Screen, Urine Not Detected (NotDetected); Phencyclidine Screen,Urine Not Detected (NotDetected); Tricyclic Antidepressant,Urine Not Detected (NotDetected); Urn Cannabinoid Scrn Detected (NotDetected)
[2019-01-14] MEDS: LACTATED RINGERS 1,000 ML IV SCH ×2 (14:00→17:32)
[2019-01-14] MEDS ORDERED: BUTORPHANOL 1 MG/ML 1 ML VIAL IV PRN ×3 (14:11→16:49)
[2019-01-14 14:37] LABS: Basophils % (A) 0 %; Eosinophils % (A) 0 %; HCT 36.2 % (34.0-46.0); HGB 12.3 gm/dL (11.4-16.0); Lymphocytes # (A) 1.7 k/uL (1.0-4.8); Lymphocytes % (A) 8 %; MCH 29.9 pg (25.0-35.0); Mean Platelet Volume 8.2; Monocytes # (A) 0.9 k/uL (0-1.0); Monocytes % (A) 5 %; Neutrophils # (A) 17.9 k/uL (1.3-7.7); Neutrophils % (A) 87 %; Platelet Count 244 k/uL (150-450); RBC 4.11 m/uL (3.80-5.40); RDW 14.1 % (11.5-15.5); WBC 20.7 k/uL (3.8-10.6)
[2019-01-14 15:51] VITALS: BMI 33.0
[2019-01-14] MEDS ORDERED: BUTORPHANOL 2 MG/ML 1 ML VIAL IV ONE (17:00)
[2019-01-14] MEDS: ACETAMINOPHEN TAB 325 MG TAB PO PRN ×2 (17:17→23:53)
[2019-01-15] MEDS: IBUPROFEN 600 MG TAB PO PRN ×3 (04:11→23:35)
[2019-01-15 07:11] LABS: Basophils % (A) 0 %; Eosinophils # (A) 0.1 k/uL (0-0.7); Eosinophils % (A) 1 %; HCT 33.1 % (34.0-46.0); HGB 10.8 gm/dL (11.4-16.0); Lymphocytes % (A) 28 %; MCH 29.1 pg (25.0-35.0); MCHC 32.7 g/dL (31.0-37.0); MCV 89.1 fL (80.0-100.0); Mean Platelet Volume 7.7; Monocytes # (A) 0.8 k/uL (0-1.0); Monocytes % (A) 6 %; Neutrophils % (A) 64 %; Platelet Count 197 k/uL (150-450); RBC 3.72 m/uL (3.80-5.40); RDW 13.4 % (11.5-15.5); WBC 14.1 k/uL (3.8-10.6)
[2019-01-15] MEDS: ACETAMINOPHEN TAB 325 MG TAB PO PRN ×2 (08:03→18:54)
[2019-01-15] MEDS: SENNOSIDES-DOCUSATE SODIUM 1 EACH TAB PO SCH ×2 (08:04→19:52)
--- NOTE | 2019-01-15 10:02 | P.PNOBGVD ---
Subjective - Subjective Principal diagnosis: day 1 Interval history: Patient is doing very well day 1. She does have some back pain cramping and some bowel pain but her lochia is reported to be much laundry tech today the over yesterday. She is a day 1 from a following 2 prior sections. She is voicing no other complaints and is tolerating her diet, ambulating, and voiding without difficulty. On physical exam vital signs are stable and afebrile. Heart regular, lungs clear, extremities are without pain. Abdomen soft and nontender. Uterus is firm and lochia again is reported be light. Assessment day 1. Plan due to the baby needs to stay for [facility] strep status we'll continue to monitor her today with likely discharge to home tomorrow. Patient reports: Reports appetite normal : doing well Objective - Latest Vital Signs Latest vital signs: Vital Signs Temp Pulse Resp BP Pulse Ox 01/15/19 08:00 97.8 F 57 L 18 100/70 01/15/19 00:00 98.5 F 51 L 16 106/57 01/14/19 20:00 98.0 F 62 16 106/62 01/14/19 16:00 98.0 F 68 18 103/59 01/14/19 12:02 98.1 F 52 L 16 119/66 01/14/19 11:32 55 L 16 108/62 01/14/19 11:02 137 H 16 120/59 01/14/19 10:47 55 L 16 115/64 01/14/19 10:32 51 L 16 115/73 01/14/19 10:18 97 F L 51 L 16 124/70 100 01/14/19 10:17 55 L 16 109/72 01/14/19 10:02 97 F L 79 16 124/70 Intake and Output 01/14/19 01/15/19 01/15/19 22:59 06:59 14:59 Other: # Voids 1 - Exam Lungs: bilateral: normal Chest: Normal S1, Normal S2 Extremities: Present: normal Abdomen: Present: normal appearance, soft Uterus: Present: normal, firm - Labs Labs: Abnormal Lab Results - Last 24 Hours (Table) 01/14/19 01/14/19 01/15/19 Range/Units 12:35 14:12 06:45 WBC 20.7 H 14.1 H (3.8-10.6) k/uL RBC 3.72 L (3.80-5.40) m/uL Hgb 10.8 L (11.4-16.0) gm/dL Hct 33.1 L (34.0-46.0) % Neutrophils # 17.9 H 9.0 H (1.3-7.7) k/uL U Marijuana (THC) Screen Detected H (NotDetected)
[2019-01-16 00:45] VITALS: RESP 16
[2019-01-16] MEDS: ACETAMINOPHEN TAB 325 MG TAB PO PRN (07:01)
--- NOTE | 2019-01-16 08:01 | P.DS ---
Providers Date of admission: 01/14/19 09:35 Expected date of discharge: 01/16/19 Attending physician: Andrew Parker Primary care physician: Stated None Hospital Course: Patient is doing very well day 2. She is involuting, voiding tolerating her diet. She voices no complaints. Vital signs are stable and afebrile. Heart regular, lungs clear, extremities without pain. Abdomen soft uterus is firm and lochia is reported light. She is to call Dr. Richey's office today and at least inform him that she is had her baby in that she will not need for tomorrow. She will also to schedule follow-up appointment with him for 6 weeks. All other questions are answered for her at this time and she'll follow up with her primary battery assembler dry cell Dr. Reece Richey moving forward. Assessment day 2. Plan discharged home follow up with Dr. Richey in 6 weeks. Or sooner as needed. Discharge instructions were reviewed with her detail and did include but were not limited to calling her battery assembler dry cell for any heavy bleeding, severe pain or high temperatures. She was to take it easy the next few days no heavy lifting, limit stairs and driving, and pelvic rest. Prescription for Motrin was 4 into her pharmacy. Patient Condition at Discharge: Good Plan - Discharge Summary New Discharge Prescriptions: New Ibuprofen [Motrin] 600 mg PO Q6HR PRN #30 tab PRN Reason: Pain No Action Pnv,Calcium 72/Iron/Folic Acid [ Plus Tablet] 1 each PO DAILY Discharge Medication List Pnv,Calcium 72/Iron/Folic Acid [ Plus Tablet] 1 each PO DAILY 11/23/18 [History] Ibuprofen [Motrin] 600 mg PO Q6HR PRN #30 tab 01/15/19 [Rx] Follow up Appointment(s)/Referral(s): Reece Richey, [REFERRING] - 6 Weeks Activity/Diet/Wound Care/Special Instructions: No heavy lifting, limit stairs and driving, and pelvic rest. If any high temperatures, heavy bleeding, or severe pain call Dr. Richey's office Discharge Disposition: HOME SELF-CARE
[2019-01-16] MEDS: SENNOSIDES-DOCUSATE SODIUM 1 EACH TAB PO SCH (08:26)
[2019-01-16 10:06] VITALS: BP 126/65; PULSE 68; TEMP 97.9
[2019-01-16] MEDS: IBUPROFEN 600 MG TAB PO PRN (12:21)
== END 2019-01-16 12:45 | disposition home or self-care (01) | DRG 807 ==
LOC: 4FBP 09:35
PROVIDERS: ADMIT Obstetrics & Gynecology; ATTEND Obstetrics & Gynecology
PROC: 10E0XZZ Delivery of Products of Conception, External Approach (ICD-10-PCS; principal; 2019-01-14)
DX: O34.219 Maternal care for unspecified type scar from previous cesarean delivery (principal); Z37.0 Single live birth; N85.8 Other specified noninflammatory disorders of uterus; Z3A.38 38 weeks gestation of pregnancy; O99.334 Smoking (tobacco) complicating childbirth; O70.0 First degree perineal laceration during delivery; F17.210 Nicotine dependence, cigarettes, uncomplicated; Z90.79 Acquired absence of other genital organ(s)
CPT/HCPCS: 80306; 85025; 88307

== ENCOUNTER → 2020-01-17 | Outpatient (CLI) | payer OTHER ==
--- NOTE | 2020-01-17 17:17 | XR ---
EXAMINATION TYPE: XR lumbosacral spine min 4V DATE OF EXAM: 01/17/2020 COMPARISON: 02/24/2013 HISTORY: Low back pain TECHNIQUE: Five-view lumbar spine FINDINGS: There 5 lumbar-type vertebral bodies. Pedicles are intact. Disc heights are preserved. Vert ebral body heights are preserved. No spondylolytic defects are evident. IMPRESSION: 1. Normal 5 view lumbar spine
== END | disposition home or self-care (01) ==
LOC: RADXRMAIN 12:42
PROVIDERS: ATTEND Internal Medicine
DX: M54.5 Low back pain (principal)
CPT/HCPCS: 72110

== ENCOUNTER 2020-08-19 08:33 | Emergency (ER) | payer OTHER ==
[2020-08-19 08:37] VITALS: BP 124/78; PULSE 71; RESP 16; TEMP 97.6
[2020-08-19 09:11] LABS: Appearance,Urine Cloudy (Clear); Bilirubin,Urine Negative (Negative); Blood,Urine Negative (Negative); Color,Urine Yellow; Glucose,Urine (UA) Negative (Negative); Ketones,Urine Negative (Negative); Leukocyte Esterase,Urine Trace (Negative); Mucus,Urine Few /hpf; Nitrite,Urine Negative (Negative); Protein,Urine Trace (Negative); RBC,Urine 1 /hpf (0-5); Squamous Epithelial Cell,Urine 13 /hpf (0-4); Urobilinogen,Urine <2.0 mg/dL (<2.0); WBC,Urine 2 /hpf (0-5)
[2020-08-19 09:34] LABS: Basophils # (A) 0.1 k/uL (0-0.2); Basophils % (A) 1 %; Eosinophils # (A) 0.3 k/uL (0-0.7); Eosinophils % (A) 3 %; HCT 41.5 % (34.0-46.0); HGB 14.3 gm/dL (11.4-16.0); Lymphocytes # (A) 2.6 k/uL (1.0-4.8); Lymphocytes % (A) 33 %; MCH 30.9 pg (25.0-35.0); MCHC 34.5 g/dL (31.0-37.0); MCV 89.5 fL (80.0-100.0); Mean Platelet Volume 7.6; Monocytes # (A) 0.4 k/uL (0-1.0); Monocytes % (A) 6 %; Neutrophils # (A) 4.5 k/uL (1.3-7.7); Neutrophils % (A) 56 %; Platelet Count 210 k/uL (150-450); RBC 4.64 m/uL (3.80-5.40); RDW 12.8 % (11.5-15.5)
--- NOTE | 2020-08-19 09:44 | ED ---
Abdominal Pain HPI - General Chief Complaint: Abdominal Pain Stated Complaint: Poss preg Time Seen by Provider: 08/19/20 08:40 Source: patient Mode of arrival: ambulatory Limitations: no limitations - History of Present Illness Initial Comments: A1 34-year-old female presenting to the ER today for chief complaint of right lower abdominal pain cramping with positive test. Patient states a few days ago she deposited department C test. Patient states her last menstrual period ended on July 23. Patient states she has history of ecto pic, with left-sided salpingectomy. Patient states she sees Dr. Chand however there unable to get her into the office when she called about this complaint and she was told to come to the ER. She denies vaginal bleeding. She denies severe pain she denies nausea vomiting dysuria urgency frequency. Patient is no distal complaints and upon arrival she appears nontoxic no acute distress - Related Data Home Medications Medication Instructions Recorded Confirmed Benzoyl Peroxide [Benzac AC Wash] 1 applic TOPICAL BID 08/19/20 08/19/20 Allergies Allergy/AdvReac Type Severity Reaction Status Date / Time No Known Allergies Allergy Verified 08/19/20 09:45 Review of Systems ROS Statement: Those systems with pertinent positive or pertinent negative responses have been documented in the HPI. ROS Other: All systems not noted in ROS Statement are negative. Past Medical History Past Medical History: No Reported History Additional Past Medical History / Comment(s): OB history: she had a with first , the second was ectopic and they removed the left tube, The third was another and this is her fourth . History of Any Multi-Drug Resistant Organisms: None Reported Past Surgical History: Section Past Anesthesia/Blood Transfusion Reactions: No Reported Reaction Past Psychological History: Anxiety Smoking Status: Current every day smoker Past Alcohol Use History: None Reported Past Drug Use History: Marijuana - Past Family History Mother Family Medical History: No Reported History General Exam - General Exam Comments Initial Comments: General: The patient is awake and alert, in no distress, and does not appear acutely ill. Eye: Pupils are equal, round and reactive to light, extra-ocular movements are intact. No nystagmus. There is normal conjunctiva bilaterally. No signs of icterus. Ears, nose, mouth and throat: There are moist mucous membranes and no oral lesions. Neck: The neck is supple, there is no tenderness or JVD. Cardiovascular: There is a regular rate and rhythm. No murmur, rub or gallop is appreciated. Respiratory: Lungs are clear to auscultation, respirations are non-labored, breath sounds are equal. No wheezes, stridor, rales, or rhonchi. Gastrointestinal: Soft, non-distended, non-tender abdomen without masses or organomegaly noted. There is no rebound or guarding present. : no adnexal or cerival motion tenderness, no bleeding. scant discharge, no odors. Musculoskeletal: Normal ROM, no tenderness. Strength 5/5. Sensation intact. Pulses equal bilaterally 2+. Neurological: A&O x 3. CN II-XII intact, There are no obvious motor or sensory deficits. Coordination appears grossly intact. Speech is normal. Skin: Skin is warm and dry and no rashes or lesions are noted. Psychiatric: Cooperative, appropriate mood & affect, normal judgment. Limitations: no limitations Course Vital Signs 08/19/20 08:34 Temperature 97.6 F Pulse Rate 71 Respiratory 16 Rate Blood Pressure 124/78 O2 Sat by Pulse 99 Oximetry Medical Decision Making - Medical Decision Making Well-appearing 24-year-old female. Abdominal exam benign. No adnexal tenderness on exam. Patient's ultrasound no findings. HCG 190. Given patient's last Andrez. Everything clinically correlates at this time however we cannot rule out an early developing ectopic however this is not at this time. I consulted BEHAVIORAL SCIENCES INSTRUCTOR to ensure close follow-up I spoke with Dr. Sosa on behalf of patient's BEHAVIORAL SCIENCES INSTRUCTOR doctor Elena She recommended repeat HCG in 49 hours and f/u in office in the next week. Patient up-to-date on plan given by BEHAVIORAL SCIENCES INSTRUCTOR she is agreeable to this she appears well nontoxic and agreeable discharge at this time. Dr Erickson agreeable to care plan. - Lab Data Result diagrams: 08/19/20 09:00 08/19/20 09:00 Lab Results 08/19/20 08/19/20 08/19/20 Range/Units 09:00 09:00 09:00 WBC 8.0 (3.8-10.6) k/uL RBC 4.64 (3.80-5.40) m/uL Hgb 14.3 (11.4-16.0) gm/dL Hct 41.5 (34.0-46.0) % MCV 89.5 (80.0-100.0) fL MCH 30.9 (25.0-35.0) pg MCHC 34.5 (31.0-37.0) g/dL RDW 12.8 (11.5-15.5) % Plt Count 210 (150-450) k/uL MPV 7.6 Neutrophils % 56 % Lymphocytes % 33 % Monocytes % 6 % Eosinophils % 3 % Basophils % 1 % Neutrophils # 4.5 (1.3-7.7) k/uL Lymphocytes # 2.6 (1.0-4.8) k/uL Monocytes # 0.4 (0-1.0) k/uL Eosinophils # 0.3 (0-0.7) k/uL Basophils # 0.1 (0-0.2) k/uL Sodium (137-145) mmol/L Potassium (3.5-5.1) mmol/L Chloride (98-107) mmol/L Carbon Dioxide (22-30) mmol/L Anion Gap mmol/L BUN (7-17) mg/dL Creatinine (0.52-1.04) mg/dL Est GFR (CKD-EPI)AfAm (>60 ml/min/1.73 sqM) Est GFR (CKD-EPI)NonAf (>60 ml/min/1.73 sqM) Glucose (74-99) mg/dL Calcium (8.4-10.2) mg/dL Total Bilirubin (0.2-1.3) mg/dL AST (14-36) U/L ALT (4-34) U/L Alkaline Phosphatase (38-126) U/L Total Protein (6.3-8.2) g/dL Albumin (3.5-5.0) g/dL HCG, Quant mIU/mL Urine Color Yellow Urine Appearance Cloudy H (Clear) Urine pH 6.0 (5.0-8.0) Ur Specific [place] 1.030 (1.001-1.035) Urine Protein Trace H (Negative) Urine Glucose (UA) Negative (Negative) Urine Ketones Negative (Negative) Urine Blood Negative (Negative) Urine Nitrite Negative (Negative) Urine Bilirubin Negative (Negative) Urine Urobilinogen <2.0 (<2.0) mg/dL Ur Leukocyte Esterase Trace H (Negative) Urine RBC 1 (0-5) /hpf Urine WBC 2 (0-5) /hpf Ur Squamous Epith Cells 13 H (0-4) /hpf Urine Mucus Few H (None) /hpf Urine HCG, Qual Detected (Not Detectd) Blood Type Blood Type Recheck Bld Type Recheck Status Antibody Screen Spec Expiration Date 08/19/20 08/19/20 Range/Units 09:00 09:00 WBC (3.8-10.6) k/uL RBC (3.80-5.40) m/uL Hgb (11.4-16.0) gm/dL Hct (34.0-46.0) % MCV (80.0-100.0) fL MCH (25.0-35.0) pg MCHC (31.0-37.0) g/dL RDW (11.5-15.5) % Plt Count (150-450) k/uL MPV Neutrophils % % Lymphocytes % % Monocytes % % Eosinophils % % Basophils % % Neutrophils # (1.3-7.7) k/uL Lymphocytes # (1.0-4.8) k/uL Monocytes # (0-1.0) k/uL Eosinophils # (0-0.7) k/uL Basophils # (0-0.2) k/uL Sodium 137 (137-145) mmol/L Potassium 4.2 (3.5-5.1) mmol/L Chloride 107 (98-107) mmol/L Carbon Dioxide 21 L (22-30) mmol/L Anion Gap 9 mmol/L BUN 18 H (7-17) mg/dL Creatinine 0.70 (0.52-1.04) mg/dL Est GFR (CKD-EPI)AfAm >90 (>60 ml/min/1.73 sqM) Est GFR (CKD-EPI)NonAf >90 (>60 ml/min/1.73 sqM) Glucose 94 (74-99) mg/dL Calcium 9.1 (8.4-10.2) mg/dL Total Bilirubin 0.6 (0.2-1.3) mg/dL AST 27 (14-36) U/L ALT 11 (4-34) U/L Alkaline Phosphatase 74 (38-126) U/L Total Protein 7.2 (6.3-8.2) g/dL Albumin 4.0 (3.5-5.0) g/dL HCG, Quant 190.4 mIU/mL Urine Color Urine Appearance (Clear) Urine pH (5.0-8.0) Ur Specific [place] (1.001-1.035) Urine Protein (Negative) Urine Glucose (UA) (Negative) Urine Ketones (Negative) Urine Blood (Negative) Urine Nitrite (Negative) Urine Bilirubin (Negative) Urine Urobilinogen (<2.0) mg/dL Ur Leukocyte Esterase (Negative) Urine RBC (0-5) /hpf Urine WBC (0-5) /hpf Ur Squamous Epith Cells (0-4) /hpf Urine Mucus (None) /hpf Urine HCG, Qual (Not Detectd) Blood Type AB Positive Blood Type Recheck AB Pos Bld Type Recheck Status No Antibody Screen NEGATIVE Spec Expiration Date 08/22/20202299 Disposition Clinical Impression: Abdominal cramping affecting Disposition: HOME SELF-CARE Condition: Good Instructions (If sedation given, give patient instructions): Ectopic (DC), Threatened Miscarriage (ED), Abdominal Pain in (ED) Additional Instructions: Please use medication as discussed. Please follow-up with OBGYN in the next 1-2 days, repeat hCG in 2 days as discussed. REUTRN FOR WORSENING PAIN ANY BLEEDING. Please return to emergency room if the symptoms increase or worsen or for any other concerns. Is patient prescribed a controlled substance at d/c from ED?: No Referrals: Janelle Lafleur MD [Primary Care Provider] - 1-2 days Andrew Parker DO [Family Provider] - 1-2 days Time of Disposition: 11:00
[2020-08-19 09:47] LABS: ALT 11 U/L (4-34); AST 27 U/L (14-36); African American GFR (CKD) >90 (>60 ml/min/1.73 sqM); Alkaline Phosphatase 74 U/L (38-126); Anion Gap 9 mmol/L; Blood Urea Nitrogen 18 mg/dL (7-17); Calcium 9.1 mg/dL (8.4-10.2); Carbon Dioxide 21 mmol/L (22-30); Chloride 107 mmol/L (98-107); Glucose 94 mg/dL (74-99); Non-African American GFR(CKD) >90 (>60 ml/min/1.73 sqM); Potassium 4.2 mmol/L (3.5-5.1); Sodium 137 mmol/L (137-145); Total Bilirubin 0.6 mg/dL (0.2-1.3); Total Protein 7.2 g/dL (6.3-8.2)
[2020-08-19 10:02] LABS: HCG,Quantitative Serum 190.4 mIU/mL
--- NOTE | 2020-08-19 10:11 | US ---
EXAMINATION TYPE: Transabdominal DATE OF EXAM: 08/19/2020 9:20 AM COMPARISON: NONE CLINICAL HISTORY: pain. Abdomen pain x 1 day, 5, para 3, ectopic 1, history of 2 c-sections a nd left fallopian tube removed positive beta-hCG test. EXAM PERFORMED: Transabdominal (TA) EXAM MEASUREMENTS: GESTATIONAL AGE / DATING Physician Established: Not established yet Dates by LMP: (4 weeks/5 days) EDC: 04/23/2021 Dates by First Scan: This is 1st scan Dates by Current Scan for: No IUP seen at this time MATERNAL ANATOMY Uterus: 9.1 x 4.1 x 6.0cm Endometrium: 1.0cm Right Ovary: 3.2 x 1.4 x 1.8cm Left Ovary: 4.3 x 2.2 x 2.1cm Post CDS / Adnexa: tiny about of free fluid in posterior cul de sac Presence of free fluid: yes Presence of corpus luteal cyst: not seen Presence of subchorionic bleed: no GESTATION / SURVEY IUP: No IUP seen at this time Date of LMP: 07/17/2020 Beta HcG (if available): Not available at time of exam Heterogeneous anteverted uterus. Endometrium thickened to 10 mm. No gestational sac, yolk sac, or fet al pole is present. Tiny amount of free fluid in pelvic cul-de-sac. Both ovaries are identified. No suspicious extra adnexal mass. IMPRESSION: Findings favor too early to visualize intrauterine but spontaneous is in differential and ectopic is not entirely excluded. Serial beta hCG and ultrasound follow -up advised.
[2020-08-20 15:11] LABS: C. trachomatis,PCR Negative (Neg,Equiv); Chlamydia trachomatis Source Vagina; N. gonorrhoeae,PCR Negative (Neg,Equiv); Neisseria Source Vagina
== END 2020-08-19 11:21 | disposition home or self-care (01) ==
LOC: EC 08:33
DX: O26.899 Other specified pregnancy related conditions, unspecified trimester (principal); O99.330 Smoking (tobacco) complicating pregnancy, unspecified trimester; R10.31 Right lower quadrant pain; F17.200 Nicotine dependence, unspecified, uncomplicated; Z3A.00 Weeks of gestation of pregnancy not specified
CPT/HCPCS: 36415; 76801; 80053; 81001; 81025; 84702; 85025; 86850; 86900; 86901; 87491; 87591; 87808

== ENCOUNTER → 2020-08-22 | Outpatient (CLI) | payer OTHER | END | disposition home or self-care (01) | LOC: LABWHC1 08:53 | PROVIDERS: ATTEND Physician Assistant Medical | DX: O20.0 Threatened abortion (principal); R10.9 Unspecified abdominal pain; Z3A.00 Weeks of gestation of pregnancy not specified | CPT/HCPCS: 36415; 84702 ==

== ENCOUNTER 2020-09-06 06:23 | Emergency (ER) | payer OTHER ==
[2020-09-06 06:31] VITALS: RESP 18; TEMP 97.6
--- NOTE | 2020-09-06 06:58 | ED ---
Female Urogenital HPI - General Chief complaint: Vaginal Bleeding Stated complaint: ABD pain Time Seen by Provider: 09/06/20 06:38 Source: patient, RN notes reviewed Mode of arrival: ambulatory Limitations: physical limitation - History of Present Illness Initial comments: Is a 24-year-old female presents emergency Department with chief complaint mild abdominal pain. Patient states that she is currently . Patient seen here a few weeks ago. Patient was told return if she had any bleeding or discomfort. She does have history of ectopic. Patient states that she is having intermittent right-sided pain but currently does not have a. She's had mild spotting. She is AB+ blood type. Patient is A1. Patient's EDUCATION CONSULTANT is Dr. Chand. Patient offers no other complaints. Last Menstrual Period: 07/23/20 - Related Data Home Medications Medication Instructions Recorded Confirmed Benzoyl Peroxide [Benzac AC Wash] 1 applic TOPICAL BID 08/19/20 08/19/20 Allergies Allergy/AdvReac Type Severity Reaction Status Date / Time No Known Allergies Allergy Verified 09/06/20 06:31 Review of Systems ROS Statement: Those systems with pertinent positive or pertinent negative responses have been documented in the HPI. ROS Other: All systems not noted in ROS Statement are negative. Past Medical History Past Medical History: No Reported History Additional Past Medical History / Comment(s): OB history: she had a with first , the second was ectopic and they removed the left tube, The third was another and this is her fourth . History of Any Multi-Drug Resistant Organisms: None Reported Past Surgical History: Section Past Anesthesia/Blood Transfusion Reactions: No Reported Reaction Past Psychological History: Anxiety Smoking Status: Current some day smoker Past Alcohol Use History: None Reported Past Drug Use History: Marijuana - Past Family History Mother Family Medical History: No Reported History General Exam Limitations: no limitations General appearance: alert, in no apparent distress Head exam: Present: atraumatic, normocephalic, normal inspection Eye exam: Present: normal appearance, PERRL, EOMI. Absent: scleral icterus, conjunctival injection, periorbital swelling Neck exam: Present: normal inspection, full ROM. Absent: tenderness, meningismus, lymphadenopathy Respiratory exam: Present: normal lung sounds bilaterally. Absent: respiratory distress, wheezes, rales, rhonchi, stridor Cardiovascular Exam: Present: regular rate, normal rhythm, normal heart sounds. Absent: systolic murmur, diastolic murmur, rubs, gallop, clicks GI/Abdominal exam: Present: soft, normal bowel sounds. Absent: distended, tenderness, guarding, rebound, rigid Back exam: Absent: CVA tenderness (R), CVA tenderness (L) Neurological exam: Present: alert Psychiatric exam: Present: normal affect, normal mood Course Vital Signs 09/06/20 06:25 Temperature 97.6 F Pulse Rate 61 Respiratory 18 Rate Blood Pressure 109/69 O2 Sat by Pulse 99 Oximetry Medical Decision Making - Medical Decision Making Reveals Evidence of a Single Viable IUP Heart Rate Is on Lorcet 116. There Is a Possible Implantation Bleeding Versus of Chronic Bleeding. Patient Will Be Discharged to the Foley Return Parameters Discussed. - Lab Data Lab Results 09/06/20 Range/Units 07:21 Urine Color Yellow Urine Appearance Clear (Clear) Urine pH 6.0 (5.0-8.0) Ur Specific [place] 1.031 (1.001-1.035) Urine Protein Trace H (Negative) Urine Glucose (UA) Negative (Negative) Urine Ketones Negative (Negative) Urine Blood Negative (Negative) Urine Nitrite Negative (Negative) Urine Bilirubin Negative (Negative) Urine Urobilinogen <2.0 (<2.0) mg/dL Ur Leukocyte Esterase Negative (Negative) Disposition Clinical Impression: Threatened miscarriage Disposition: HOME SELF-CARE Condition: Stable Instructions (If sedation given, give patient instructions): Threatened Miscarriage (ED) Additional Instructions: Please return to the Emergency Department if symptoms worsen or any other concerns. Is patient prescribed a controlled substance at d/c from ED?: No Referrals: Janelle Lafleur MD [Primary Care Provider] - 1-2 days Andrew Parker DO [Doctor of Osteopathic Medicine] - 1-2 days Time of Disposition: 07:42
[2020-09-06 07:27] LABS: Appearance,Urine Clear (Clear); Bilirubin,Urine Negative (Negative); Blood,Urine Negative (Negative); Color,Urine Yellow; Glucose,Urine (UA) Negative (Negative); Ketones,Urine Negative (Negative); Leukocyte Esterase,Urine Negative (Negative); Nitrite,Urine Negative (Negative); Protein,Urine Trace (Negative); Specific Gravity,Urine 1.031 (1.001-1.035); Urobilinogen,Urine <2.0 mg/dL (<2.0)
--- NOTE | 2020-09-06 07:35 | US ---
EXAMINATION TYPE: Transabdominal DATE OF EXAM: 09/06/2020 7:18 AM COMPARISON: US 08/19/2020 CLINICAL HISTORY: pain. Spotting x couple days, occasional right pelvic pain, 5, para 3, ecto pic 1, history of 2 c-sections and left fallopian tube removed. EXAM PERFORMED: Transabdominal (TA) EXAM MEASUREMENTS: GESTATIONAL AGE / DATING Physician Established: Not established yet Dates by LMP: (7 weeks/2 days) EDC: 04/23/2021 Dates by First Scan: No IUP seen at this time Dates by Current Scan for: ( 6 weeks/1 days) EDC: 05/01/2021 MATERNAL ANATOMY Uterus: 9.7 x 6.1 x 7.1cm Right Ovary: 2.2 x 1.3 x 1.5cm Left Ovary: 3.2 x 2.0 x 2.0cm Post CDS / Adnexa: wnl Presence of free fluid: wnl Presence of corpus luteal cyst: not seen Presence of subchorionic bleed: 2 hypoechoic areas adjacent to gestational sac measuring 0.6 x 1.0 x 1.0cm and 1.8 x 0.7 x 2.2cm GESTATION / SURVEY CRL: 0.5cm (6 weeks/1 days) Yolk Sac (normal less than 6mm): 2.8mm Heart Rate: 116 bpm Rhythm: Normal IUP: Viable IUP Date of LMP: 07/17/2020 Single live intrauterine gestation is now identified as gestational sac, yolk sac, pole are see n. Adjacent to gestational sac there are 2 curvilinear tiny fluid collections could reflect subchorio haydee bleeding and/or product of implantation. heart tones somewhat low in rate. Short term follo w-up reassessment advised. No free fluid. Both ovaries present. No suspicious extra ovarian adnexal lesions. IMPRESSION: Single live intrauterine gestation is confirmed on today's study, mean crown-rump length 0.5 cm corresponding to 6 week 1 day old fetus.
[2020-09-06 07:50] VITALS: BP 129/73; PULSE 70
== END 2020-09-06 07:49 | disposition home or self-care (01) ==
LOC: EC 06:23
DX: O20.0 Threatened abortion (principal); O99.331 Smoking (tobacco) complicating pregnancy, first trimester; F17.200 Nicotine dependence, unspecified, uncomplicated; F12.90 Cannabis use, unspecified, uncomplicated; Z3A.01 Less than 8 weeks gestation of pregnancy; Z90.79 Acquired absence of other genital organ(s)
CPT/HCPCS: 76801; 81003; 99284